=== PATIENT | female | born 1940 | race Caucasian/White ===

== ENCOUNTER 2018-01-07 21:39 | Emergency (ER) | payer MEDICARE, OTHER ==
[~2018-01-07] VITALS: Ht 154.9 cm; Wt 74.8 kg
[2018-01-07] MEDS ORDERED: METO50TA7 PO (22:07)
[2018-01-07] MEDS ORDERED: ASPI-605 PO (22:07)
--- NOTE | 2018-01-07 22:36 | NUR ---
PT STATES SHE FELL WHILE IN [place] [address] EARLIER TODAY. DENIES LOC, OR N/V. VSS. NO DISTRESS NOTED. FAMILY AT BEDSIDE.
--- NOTE | 2018-01-07 22:52 | NUR ---
PT TAKEN VIA WHEELCHAIR TO CT. NO DISTRESS NOTED.
--- NOTE | 2018-01-07 23:29 | NUR ---
Patient discharged to home in stable conditon WITH DAUGHTER TAKING PATIENT HOME. Written and verbal after care instructions given. Patient/DAUGHTER verbalizes understanding of instructions. WALKED OUT OF ER WITH NO DISTRESS NOTED
[2018-01-07 23:30] VITALS: BP 158/88
== END 2018-01-07 23:33 | disposition home or self-care (01) ==
LOC: ER 21:40
DX: S00.03XA Contusion of scalp, initial encounter (principal); I10 Essential (primary) hypertension; Z79.82 Long term (current) use of aspirin; Z79.899 Other long term (current) drug therapy; Z90.710 Acquired absence of both cervix and uterus; W19.XXXA Unspecified fall, initial encounter; Y93.89 Activity, other specified; Y99.8 Other external cause status; Y92.89 Other specified places as the place of occurrence of the external cause
CPT/HCPCS: 70450; 99284; A4663

== ENCOUNTER 2021-08-10 06:39 | Emergency (ER) | payer MEDICARE, OTHER ==
[~2021-08-10] VITALS: Ht 157.5 cm; Wt 72.6 kg
[~2021-08-10 06:39] MED LIST: ASPI-605 PO; METO50TA7 PO
--- NOTE | 2021-08-10 06:44 | NUR ---
Dr. Hilton at bedside for MSE.
[2021-08-10] MEDS ORDERED: MORPHINE SULFATE 2 MG/1 ML DISP.SYRIN IV ONE (07:00)
[2021-08-10] MEDS ORDERED: METOPROLOL TARTRATE 5 MG/5 ML VIAL IVP ONE ×2 (07:00→07:38)
[2021-08-10] MEDS ORDERED: SWABABLE VALVE TRANSFER SET EA MC ONE (07:15)
[2021-08-10] MEDS ORDERED: IV NORMAL SALINE 250 ML IV ONE (07:15)
[2021-08-10] MEDS ORDERED: IOHEXOL 350 100 ML INFUS..BTL ONE (07:15)
[2021-08-10 07:16] LABS: HEMATOCRIT 33.7 % (31.2-41.9); MEAN CORPUSCULAR HEMOGLOBIN 31.2 uug (24.7-32.8); MEAN CORPUSCULAR VOLUME 90.6 fL (75.5-95.3); PLATELET COUNT (AUTO) 172 K/uL (179-408)
[2021-08-10 07:24] LABS: CREATININE 1.3 mg/dL (0.6-1.3); POTASSIUM 5.4 mmol/L (3.5-5.1)
[2021-08-10] MEDS ORDERED: HALOPERIDOL LACTATE 5 MG/1 ML VIAL IV ONE (07:30)
[2021-08-10 07:36] LABS: BILIRUBIN,TOTAL 0.6 mg/dL (0.2-1.0); TOTAL PROTEIN, SERUM 7.2 g/dL (6.4-8.2)
[2021-08-10] MEDS ORDERED: MORPHINE SULFATE 4 MG/1 ML DISP.SYRIN ONE (07:38)
[2021-08-10] MEDS ORDERED: VALA100026 PO ×2 (09:42→10:31)
[2021-08-10 10:20] VITALS: BP 140/70
--- NOTE | 2021-08-10 10:55 | NUR ---
Patient's condition improved, and was cleared for DC by ERMD. Written and verbal after care instructions given by MD and reinforced by RN to both daughter and patient. Pt stressed to follow up with PCP or return to ER for worsening s/s. Patient verbalizes understanding of instructions. Patient discharged to home in stable condition. Assisted out of ED via wheelchair to private vehicle.
== END 2021-08-10 10:58 | disposition home or self-care (01) ==
LOC: ER 06:42
DX: M79.602 Pain in left arm (principal); M54.9 Dorsalgia, unspecified; I48.92 Unspecified atrial flutter; R00.0 Tachycardia, unspecified; I10 Essential (primary) hypertension; E11.9 Type 2 diabetes mellitus without complications; R45.1 Restlessness and agitation; Z85.3 Personal history of malignant neoplasm of breast; Z79.82 Long term (current) use of aspirin; Z79.899 Other long term (current) drug therapy
CPT/HCPCS: 36415; 71045; 71275; 80053; 82248; 83605 ×2; 83880; 84484; 85025; 85610; 93005 ×2; 96374; 96375; 99285; J2270; J3490; Q9967; 70030-TC; A4663; J7030; J7050